=== PATIENT | male | born 1935 | race Caucasian/White ===

== ENCOUNTER → 2018-07-04 10:22 | Outpatient (CLI) | payer MEDICARE, BC ==
[2018-07-04 11:31] LABS: ALBUMIN 3.6 g/dL (3.4-5.0); BILIRUBIN - DIRECT 0.2 mg/dL (0.00-0.30); BILIRUBIN - INDIRECT 0.59 mg/dL (0.00-1.00); BILIRUBIN - TOTAL 0.79 mg/dL (0.2-1.3); PROTEIN - SERUM 7.1 g/dL (6.4-8.2); T4 THYROXIN - FREE 1.02 ng/dL (0.76-1.46); THYROID STIMULATING HORMONE 1.04 uIU/mL (0.36-3.74)
[2018-07-05 13:18] LABS: ANA REFLEX - DIRECT Negative (Negative)
== END | disposition home or self-care (01) ==
LOC: D.RT 10:22
PROVIDERS: Internal Medicine Pulmonary Disease
DX: R06.09 Other forms of dyspnea (principal); I27.20 Pulmonary hypertension, unspecified